=== PATIENT | female | born 1980 | race Caucasian/White ===

== ENCOUNTER 2017-04-01 20:56 | Emergency (ER) | payer OTHER ==
[~2017-04-01] VITALS: Ht 162.6 cm; Wt 113.4 kg
[~2017-04-01 20:56] MED LIST: AMOXICILLIN 50500 MG PO; FLONASE 0.05%50 MCG NASAL; NAPROSYN500 MG PO
[2017-04-01] MEDS ORDERED: PREDNISONE 20 M20 MG PO (21:24)
[2017-04-01] MEDS ORDERED: NORCO 5-325 TA1 EAC1 PO (21:24)
[2017-04-01] MEDS ORDERED: VENTOLIN HFA 1818 GM INH (21:24)
[2017-04-01 21:42] VITALS: BP 135/63
== END 2017-04-01 21:43 | disposition home or self-care (01) ==
LOC: M.ERS 20:56
DX: J20.9 Acute bronchitis, unspecified (principal); J11.1 Influenza due to unidentified influenza virus with other respiratory manifestations; R05 Cough; M54.9 Dorsalgia, unspecified; M79.1 Myalgia; R07.81 Pleurodynia; F17.200 Nicotine dependence, unspecified, uncomplicated

== ENCOUNTER 2018-03-10 15:47 | Emergency (ER) | payer OTHER ==
[~2018-03-10] VITALS: Ht 162.6 cm; Wt 104.3 kg
[~2018-03-10 15:47] MED LIST changes: +NORCO 5-325 TA1 EAC1 PO; +PREDNISONE 20 M20 MG PO; +VENTOLIN HFA 1818 GM INH
[2018-03-10] MEDS ORDERED: MEDROL DOSPAK21 TA1 PO (18:00)
[2018-03-10] MEDS ORDERED: MOBIC15 MG PO (18:00)
[2018-03-10] MEDS ORDERED: ACETAMINOPHEN-1 EAC1 PO (18:00)
[2018-03-10 18:17] VITALS: BP 136/76
== END 2018-03-10 18:18 | disposition home or self-care (01) ==
LOC: M.ERS 15:47
DX: S83.192A Other subluxation of left knee, initial encounter (principal); S93.432A Sprain of tibiofibular ligament of left ankle, initial encounter; E66.01 Morbid (severe) obesity due to excess calories; F17.210 Nicotine dependence, cigarettes, uncomplicated; Z68.39 Body mass index [BMI] 39.0-39.9, adult; Z98.890 Other specified postprocedural states; Z90.49 Acquired absence of other specified parts of digestive tract; W01.0XXA Fall on same level from slipping, tripping and stumbling without subsequent striking against object, initial encounter; Y93.89 Activity, other specified; Y92.89 Other specified places as the place of occurrence of the external cause; Y99.8 Other external cause status

== ENCOUNTER 2018-05-21 09:30 | Emergency (ER) | payer OTHER ==
[~2018-05-21] VITALS: Ht 160 cm; Wt 104.3 kg
[~2018-05-21 09:30] MED LIST changes: +ACETAMINOPHEN-1 EAC1 PO; +MEDROL DOSPAK21 TA1 PO; +MOBIC15 MG PO
[2018-05-21] MEDS ORDERED: NOHOMEMEDICATIONS (09:42)
[2018-05-21 10:00] LABS: ABSOLUTE BASOPHILS 0.1 thou/uL (0.0-0.2); ABSOLUTE EOSINOPHILS 0.7 thou/uL (0.0-0.7); ABSOLUTE LYMPHOCYTES 2.3 thou/uL (0.8-5.3); ABSOLUTE MONOCYTES 0.8 thou/uL (0.0-1.2); BASOPHILS 1.1 %; HEMATOCRIT 41.1 % (37.0-47.0); HEMOGLOBIN 14.5 gm/dL (12.0-15.0); LYMPHOCYTES 25.8 %; MCHC 35.4 g/dL (28.0-37.0); MCV 87.4 fL (80.0-100.0); MONOCYTES 9.2 %; MPV 6.3 fl. (7.2-11.1); NUCLEATED RBCS 0 /100WBC; PLATELET COUNT* 353 thou/uL (150-400); POLYS 55.9 %; RDW-CV 13.1 % (10.5-14.5)
[2018-05-21 10:18] LABS: ANION GAP 8 mmol/L (7-16); BUN 12 mg/dL (7-18); CALCIUM 9.2 mg/dL (8.5-10.1); CHLORIDE 106 mmol/L (98-107); CO2 27 mmol/L (21-32); CREATININE 0.7 mg/dL (0.6-1.3); GLUCOSE 87 mg/dL (70-99); POTASSIUM 3.9 mmol/L (3.5-5.1); SODIUM 141 mmol/L (136-145); TROPONIN-I LEVEL <0.06 ng/mL (<0.06)
[2018-05-21 10:20] LABS: ALBUMIN 3.7 g/dL (3.4-5.0); ALKALINE PHOSPHATASE 127 U/L (46-116); LIPASE 87 U/L (73-393); NT-PRO BRAIN NAT PEPTIDE 87 pg/mL (<300); SGOT 10 U/L (15-37); SGPT 18 U/L (30-65); TOTAL BILIRUBIN 0.2 mg/dL (<0.1-1.0); TOTAL PROTEIN 7.4 g/dL (6.4-8.2)
[2018-05-21] MEDS ORDERED: HYDROCODONE-AP1 EAC6 PO (11:05)
[2018-05-21] MEDS ORDERED: ZPAK PO (11:05)
[2018-05-21 11:20] VITALS: BP 116/55
--- NOTE | 2018-05-21 17:06 | EKG ---
[place] [address] ELECTROCARDIOGRAM REPORT Name: PRATEEK MORRELL Room: [facility]#: [id number] Admission: 05/21/18 Attend Phys: Discharge: 05/21/18 Date of : 78 Report #: [id number] THIS REPORT FOR: //name// [facility] ED Test Date: 2018-05-21 Test Time: 09:35:54 Pat Name: PRATEEK MORRELL Department: Room: Gender: F Life Agent: Erik AGUIRRE : 1980 Requested By: Delano Burris Order Number: [id number] MD: Tay Dennis Measurements Intervals [place] Rate: 67 P: 21 DE: 120 QRS: 14 QRSD: 104 T: 41 QT: 422 QTc: 446 Interpretive Statements Sinus rhythm Low voltage, extremity leads Compared to ECG 12/23/2006 14:19:18 Low QRS voltage now present Sinus arrhythmia no longer present Electronically Signed On 05-21-2018 17:06:39 CDT by Tay Dennis [email or web address] <ELECTRONICALLY SIGNED> By: Tay Dennis MD, [facility] 05/21/18 1706 4 4 Tay Dennis MD, [facility] /EPI
== END 2018-05-21 11:20 | disposition home or self-care (01) ==
LOC: M.ERS 09:30
PROVIDERS: Emergency Medicine Emergency Medical Services
DX: R07.89 Other chest pain (principal); F17.200 Nicotine dependence, unspecified, uncomplicated; E66.01 Morbid (severe) obesity due to excess calories; Z90.49 Acquired absence of other specified parts of digestive tract; Z98.890 Other specified postprocedural states; Z68.41 Body mass index [BMI] 40.0-44.9, adult

== ENCOUNTER 2020-05-27 18:20 | Emergency (ER) | payer OTHER, MEDICAID ==
[~2020-05-27] VITALS: Ht 160 cm; Wt 90.7 kg
[~2020-05-27 18:20] MED LIST changes: +HYDROCODONE-AP1 EAC6 PO; +NOHOMEMEDICATIONS; +ZPAK PO
[2020-05-27] MEDS ORDERED: IBUPROFEN 600600 M1 PO (19:28)
[2020-05-27] MEDS ORDERED: NORCO5 PO ×2 (19:28→19:39)
[2020-05-27 19:45] VITALS: BP 156/72
== END 2020-05-27 19:45 | disposition home or self-care (01) ==
LOC: M.ERS 18:20
DX: S93.491A Sprain of other ligament of right ankle, initial encounter (principal); E66.01 Morbid (severe) obesity due to excess calories; Z68.35 Body mass index [BMI] 35.0-35.9, adult; Z98.890 Other specified postprocedural states; Z90.49 Acquired absence of other specified parts of digestive tract; X50.1XXA Overexertion from prolonged static or awkward postures, initial encounter; Y93.89 Activity, other specified; Y92.89 Other specified places as the place of occurrence of the external cause; Y99.8 Other external cause status

== ENCOUNTER 2020-07-23 22:31 | Emergency (ER) | payer OTHER, MEDICAID ==
[~2020-07-23] VITALS: Ht 160 cm; Wt 113.4 kg
[~2020-07-23 22:31] MED LIST changes: +IBUPROFEN 600600 M1 PO; +NORCO5 PO
[2020-07-24] MEDS ORDERED: PREDNISONE 20 M20 M1 PO (00:44)
[2020-07-24] MEDS ORDERED: MELOXICAM15 MG PO (00:44)
[2020-07-24] MEDS ORDERED: ACETAMINOPHEN-1 EAC2 PO (00:44)
[2020-07-24 01:43] VITALS: BP 137/56
== END 2020-07-24 01:30 | disposition home or self-care (01) ==
LOC: M.ERS 22:31
DX: M25.471 Effusion, right ankle (principal); M25.571 Pain in right ankle and joints of right foot; R60.0 Localized edema; E66.01 Morbid (severe) obesity due to excess calories; F17.210 Nicotine dependence, cigarettes, uncomplicated; Z68.41 Body mass index [BMI] 40.0-44.9, adult; Z98.890 Other specified postprocedural states; Z90.49 Acquired absence of other specified parts of digestive tract

== ENCOUNTER 2020-08-10 22:46 | Emergency (ER) | payer OTHER, MEDICAID ==
[~2020-08-10] VITALS: Ht 160 cm; Wt 111.1 kg
[~2020-08-10 22:46] MED LIST changes: +ACETAMINOPHEN-1 EAC2 PO; +MELOXICAM15 MG PO; +PREDNISONE 20 M20 M1 PO
[2020-08-10] MEDS ORDERED: ULTRAM 50MG TAB50 MG PO (23:01)
[2020-08-10 23:26] LABS: URINE BILIRUBIN NEGATIVE (Negative); URINE BLOOD NEGATIVE (Negative); URINE CLARITY CLEAR; URINE COLOR YELLOW; URINE GLUCOSE-RANDOM NEGATIVE (Negative); URINE KETONES NEGATIVE (Negative); URINE LEUKOCYTES-REFLEX NEGATIVE (Negative); URINE NITRITE-REFLEX NEGATIVE (Negative); URINE PROTEIN NEGATIVE (Negative); URINE UROBILINOGEN 0.2 E.U./dl (0.2-1.0)
[2020-08-10 23:34] LABS: ABSOLUTE BASOPHILS 0.1 thou/uL (0.0-0.2); ABSOLUTE EOSINOPHILS 0.4 thou/uL (0.0-0.7); ABSOLUTE LYMPHOCYTES 2.3 thou/uL (0.8-5.3); ABSOLUTE MONOCYTES 0.7 thou/uL (0.0-1.2); ABSOLUTE NEUTROPHILS 5.3 thou/uL (1.6-8.1); BASOPHILS 1.1 %; EOSINOPHILS 4.9 %; HEMATOCRIT 41.3 % (37.0-47.0); HEMOGLOBIN 14.6 gm/dL (12.0-15.0); LYMPHOCYTES 25.7 %; MCH 30.4 pg (26.0-34.0); MCHC 35.4 g/dL (28.0-37.0); MCV 85.9 fL (80.0-100.0); MONOCYTES 7.6 %; MPV 6.2 fl. (7.2-11.1); NUCLEATED RBCS 0 /100WBC; PLATELET COUNT* 331 thou/uL (150-400); POLYS 60.7 %; RBC 4.81 mil/uL (4.20-5.00); RDW-CV 14.1 % (10.5-14.5); WBC 8.8 thou/uL (4.0-11.0)
[2020-08-10 23:44] LABS: CALCIUM 9.1 mg/dL (8.5-10.1); CREATININE 0.7 mg/dL (0.6-1.3); POTASSIUM 4.2 mmol/L (3.5-5.1)
[2020-08-10 23:48] LABS: ALBUMIN 3.4 g/dL (3.4-5.0); TOTAL BILIRUBIN 0.4 mg/dL (<0.1-1.0)
[2020-08-11] MEDS ORDERED: APAP W/CODEINE1 TA2 PO (01:44)
[2020-08-11] MEDS ORDERED: REGLAN 10 MG TA10 MG PO (01:52)
[2020-08-11 02:01] VITALS: BP 162/95
== END 2020-08-11 02:01 | disposition home or self-care (01) ==
LOC: M.ERS 22:46
PROVIDERS: Emergency Medicine
DX: R11.2 Nausea with vomiting, unspecified (principal); E66.01 Morbid (severe) obesity due to excess calories; Z68.41 Body mass index [BMI] 40.0-44.9, adult; F17.210 Nicotine dependence, cigarettes, uncomplicated; Z90.49 Acquired absence of other specified parts of digestive tract; Z98.890 Other specified postprocedural states

== ENCOUNTER 2020-08-22 21:50 | Emergency (ER) | payer OTHER, MEDICAID ==
[~2020-08-22] VITALS: Ht 160 cm; Wt 111.1 kg
[~2020-08-22 21:50] MED LIST changes: +APAP W/CODEINE1 TA2 PO; +REGLAN 10 MG TA10 MG PO; +ULTRAM 50MG TAB50 MG PO
[2020-08-22] MEDS ORDERED: ACETAMINOPHEN-1 EAC2 PO (21:57)
[2020-08-22] MEDS ORDERED: APAP W/CODEINE1 TA2 PO (23:11)
[2020-08-22 23:30] VITALS: BP 153/77
== END 2020-08-22 23:30 | disposition home or self-care (01) ==
LOC: M.ERS 21:50
DX: M25.571 Pain in right ankle and joints of right foot (principal); E66.01 Morbid (severe) obesity due to excess calories; Z98.890 Other specified postprocedural states; Z88.6 Allergy status to analgesic agent

== ENCOUNTER → 2020-08-25 | Outpatient (CLI) | payer OTHER, MEDICAID | LOC: M.MRI 11:06 | PROVIDERS: ATTEND Orthopaedic Surgery | DX: S93.491A Sprain of other ligament of right ankle, initial encounter (principal); S93.411A Sprain of calcaneofibular ligament of right ankle, initial encounter; M25.471 Effusion, right ankle; M77.31 Calcaneal spur, right foot; M25.371 Other instability, right ankle; M79.89 Other specified soft tissue disorders; X58.XXXA Exposure to other specified factors, initial encounter; Y93.89 Activity, other specified; Y92.89 Other specified places as the place of occurrence of the external cause; Y99.8 Other external cause status ==

== ENCOUNTER 2020-10-02 19:38 | Emergency (ER) | payer OTHER, MEDICAID ==
[~2020-10-02] VITALS: Ht 160 cm; Wt 111.1 kg
[2020-10-02] MEDS ORDERED: HIV MEDS (19:44)
[2020-10-02 23:00] LABS: URINE BILIRUBIN NEGATIVE (Negative); URINE BLOOD NEGATIVE (Negative); URINE CLARITY CLEAR; URINE COLOR YELLOW; URINE GLUCOSE-RANDOM NEGATIVE (Negative); URINE KETONES TRACE (Negative); URINE LEUKOCYTES-REFLEX NEGATIVE (Negative); URINE NITRITE-REFLEX NEGATIVE (Negative); URINE PROTEIN NEGATIVE (Negative); URINE SPECIFIC GRAVITY 1.025 (1.005-1.030)
[2020-10-03 00:46] LABS: HEMATOCRIT 39.8 % (37.0-47.0); HEMOGLOBIN 13.6 gm/dL (12.0-15.0); MCH 29.8 pg (26.0-34.0); MCHC 34.3 g/dL (28.0-37.0); MPV 6.2 fl. (7.2-11.1); RBC 4.57 mil/uL (4.20-5.00); RDW-CV 13.9 % (10.5-14.5); WBC 7.6 thou/uL (4.0-11.0)
[2020-10-03 01:10] LABS: CALCIUM 9.1 mg/dL (8.5-10.1); CREATININE 0.8 mg/dL (0.6-1.3); POTASSIUM 3.3 mmol/L (3.5-5.1)
[2020-10-03 01:15] LABS: ALBUMIN 3.8 g/dL (3.4-5.0); TOTAL BILIRUBIN 0.3 mg/dL (<0.1-1.0); TOTAL PROTEIN 7.1 g/dL (6.4-8.2)
[2020-10-03] MEDS ORDERED: ACETAMINOPHEN-1 EAC2 PO (03:58)
[2020-10-03] MEDS ORDERED: ZOFRAN ODT4 MG PO (03:58)
[2020-10-03 04:09] VITALS: BP 126/72
== END 2020-10-03 04:09 | disposition home or self-care (01) ==
LOC: M.ERS 19:38
PROVIDERS: Personal Emergency Response Attendant
DX: R10.11 Right upper quadrant pain (principal); Z20.822 Contact with and (suspected) exposure to COVID-19; R10.31 Right lower quadrant pain; Z90.49 Acquired absence of other specified parts of digestive tract; Z98.890 Other specified postprocedural states; E66.01 Morbid (severe) obesity due to excess calories; Z88.6 Allergy status to analgesic agent; Z68.41 Body mass index [BMI] 40.0-44.9, adult